=== PATIENT | female | born 1955 | race Hispanic/Latino ===

== ENCOUNTER 2018-03-11 17:14 | Emergency (ER) | payer OTHER, SELFPAY | END 2018-03-11 18:25 | disposition home or self-care (01) | LOC: SCSER 17:14 | DX: H60.92 Unspecified otitis externa, left ear (principal); E11.9 Type 2 diabetes mellitus without complications; E78.5 Hyperlipidemia, unspecified; I10 Essential (primary) hypertension; Z87.891 Personal history of nicotine dependence | CPT/HCPCS: 99282 ==

== ENCOUNTER 2018-04-10 08:35 | Observation (INO) | payer MEDICARE, SELFPAY ==
[2018-04-10 09:09] LABS: #Basophils 0.1 thou/uL (0.0-0.2); #Eosinphils 0.2 thou/uL (0.0-0.7); #Lymphocytes 1.7 thou/uL (1.20-3.40); #Monocytes 0.3 thou/uL (0.11-0.59); #Neutrophils 3.8 thou/uL (1.40-6.50); %Basophils 1.4 % (0.0-1.0); %Eosinophils 3.2 % (0.0-10.0); %Lymphocytes 27.6 % (21.0-51.0); %Monocytes 5.4 % (0.0-10.0); %Neutrophils 62.6 % (42.0-75.0); Mean Corpuscular HGB CONC 32.8 g/dL (32.0-36.0); Mean Corpuscular Hemoglobin 28.8 pg (27.0-31.0); Mean Corpuscular Volume 87.8 fL (78.0-98.0); Mean Platelet Volume 7.7 fL (7.4-10.4); Platelet Count 258 thou/uL (130-400); Red Blood Cell (RBC) Count 4.52 mill/uL (4.20-5.40)
[2018-04-10] MEDS ORDERED: hydrALAZINE 20 MG/ML VIAL ONE (09:10)
[2018-04-10 09:30] LABS: Bilirubin Negative (Negative); Blood, Urine Trace (Negative); Clarity Clear (Clear); Glucose, Urine (Dipstick) Negative (Negative); Leukocyte Small (Negative); Nitrite Negative (Negative); Protein, Urine (Dipstick) Negative (Neg-Trace); Urobilinogen 0.2 mg/dL (0.2-1.0); pH, Urine 7.5 (5.0-9.0)
[2018-04-10 09:39] LABS: ALT (SGPT) 10 U/L (8-55); AST (SGOT) 15 U/L (5-34); Albumin 4.1 g/dL (3.4-4.8); Alkaline Phosphatase 62 U/L (40-150); Anion Gap 13 mmol/L (10-20); BUN (Urea Nitrogen) 16 mg/dL (9.8-20.1); Bilirubin, Total 0.6 mg/dL (0.2-1.2); Calc. Creatinine Clearance 0 mL/min (70-130); Calcium 9.4 mg/dL (7.8-10.44); Carbon Dioxide 27 mmol/L (23-31); Chloride 97 mmol/L (98-107); Estimated GFR-MDRD Greater than 90; Globulin 3.2 g/dL (2.4-3.5); Glucose 160 mg/dL (80-115); Potassium 3.3 mmol/L (3.5-5.1); Protein, Total 7.3 g/dL (6.0-8.3); Sodium 134 mmol/L (136-145)
[2018-04-10 09:40] LABS: Bacteria/HPF Rare-Few HPF (None Seen); Squamous Epithelial 0-3 HPF (0-3)
[2018-04-10 09:40] LABS: CKMB 1.5 ng/mL (0-6.6); Troponin I Less than 0.010 ng/mL (< 0.028)
--- NOTE | 2018-04-10 10:06 | RAD ---
PORTABLE CHEST: History: Chest pain FINDINGS: The lung clark are clear. Heart and mediastinum appear normal. Vasculature is normal. IMPRESSION: No acute abnormality. POS: [facility]
--- NOTE | 2018-04-10 10:10 | CT ---
NONCONTRAST CT HEAD: Date: 04-10-18 History: Headache, high blood pressure. Comparison: None available. FINDINGS: There is no evidence of a hemorrhage, acute infarction, mass effect, or midline shift. Ventricular sy stem is normal in size, shape, and position. Mucosal thickening is present in the left sphenoid sinus . Mastoid air cells are clear. Calvarial structures are intact. IMPRESSION: 1. No acute intracranial abnormalities demonstrated. 2. Sinus disease involving the left sphenoid sinus. POS: [facility]
[2018-04-10 12:50] LABS: Troponin I Less than 0.010 ng/mL (< 0.028)
[2018-04-10] MEDS ORDERED: Nitroglycerin 2% Ointment 1 INCH/1 GM Packet ONE (12:56)
[2018-04-10 16:45] VITALS: BMI 24.4
[2018-04-10] MEDS ORDERED: Nitroglycerin 0.4 MG TAB (25 Tab Bottle) PO PRN (17:08)
[2018-04-10] MEDS ORDERED: Dextrose 5% in Water 1,000 ML IV PRN (17:10)
[2018-04-10] MEDS ORDERED: Dextrose 50% Abboject 50 ML SYRINGE SLOW IVP PRN (17:10)
[2018-04-10] MEDS ORDERED: HumaLOG 300 UNITS/3 ML VIAL SC PRN (17:10)
[2018-04-10] MEDS ORDERED: Acetaminophen 325 MG TAB PO PRN (17:25)
[2018-04-10 17:27] LABS: Troponin I Less than 0.010 ng/mL (< 0.028)
[2018-04-10] MEDS: Potassium Chloride 20 MEQ TAB PO SCH (17:40)
[2018-04-10] MEDS ORDERED: Ondansetron ORAL SOLN. 4 MG/5 ML UDCUP PO PRN (18:10)
[2018-04-10] MEDS ORDERED: Ondansetron HCl/PF 4 MG/2 ML Vial IVP PRN (18:10)
[2018-04-10] MEDS ORDERED: Metoclopramide HCl 10 MG/2 ML VIAL IVP SCH (18:15)
[2018-04-10] MEDS: Lisinopril/Hydrochlorothiazide 20 mg/12.5 mg Tablet PO SCH (18:51)
--- NOTE | 2018-04-10 19:39 | PDOC.FPRHP ---
- History of Present Illness Chief Complaint: Chest Pain History of Present Illness: Patient presented to [facility] ED for chest pain starting this afternoon at rest. has not had this happen before. Described as 2/10 tightness with numb senstation running down extremities. Not related to exertion. Had a stress test 10 years ago which was normal. No N/V/D. No recent illness. No Fm Hx of heart disease. Former smoker, 1/2ppd for 7 years. Dm2, HLD, HTN. ED Course: Nitro paste ASA - Allergies/Adverse Reactions Allergies Allergy/AdvReac Type Severity Reaction Status Date / Time No Known Allergies Allergy Unverified 04/10/18 16:56 - Home Medications Medication Instructions Recorded Confirmed Type Cholesterol Med 04/10/18 History Dorzolamide HCl/Timolol Maleat 1 drop L EYE BID 04/10/18 04/10/18 History [Dorzolamide HCl/Timolol Maleate Ophth] Lisinopril/Hydrochlorothiazide 1 tablet PO BID 04/10/18 04/10/18 History [Lisinopril-Hctz 20-12.5 mg Tab] Prednisolone Acetate/Pf 1 drop L EYE DAILY 04/10/18 04/10/18 History [Prednisolone Acet 1% Eye Drop] metFORMIN HCl [Metformin HCl] 1,000 mg PO BID-WM 04/10/18 04/10/18 History - History PMHx: DM2, HLD, HTN, Glaucoma PSHx: uterine suspension FHx: non-contributory Social: 1/2 ppd smoker for 7 years, quit last year, no alcohol/drugs - Review of Systems General: denies: fever/chills, night sweats Eyes: denies: eye pain ENT: denies: nasal congestion, rhinorrhea Respiratory: denies: cough, congestion Cardiovascular: reports: chest pain. denies: palpitation, orthopnea Gastrointestinal: denies: nausea, vomiting, diarrhea Genitourinary: denies: dysuria Skin: denies: rashes, itching Musculoskeletal: denies: pain, arthritis/arthralgias Neurological: denies: numbness, weakness Psychological: reports: anxiety. denies: depression - Vital signs BP: 211/117 -> 130s/90s HR: 75 RR: 18 Tmax: 97.7 Pox: 98% on RA Wt: 57kg - Physical Exam Constitutional: NAD, awake, alert and oriented HEENT: normocephalic and atraumatic Neck: supple Chest: no-tender to palpation Heart: RRR, normal S1/S2 Lungs: CTAB, no respiratory distress Abdomen: soft, non-tender, bowel sounds present, no hernias Musculoskeletal: normal structure Neurological: no focal deficit, normal sensation Skin: no rash/lesions, capillary refill <2 seconds Psychiatric: normal mood and affect FMR H&P: Results - Labs Result Diagrams: 04/10/18 08:52 04/10/18 09:15 Lab results: WBC 6.0 thou/uL (4.8-10.8) 04/10/18 08:52 Hgb 13.0 g/dL (12.0-16.0) 04/10/18 08:52 Hct 39.7 % (36.0-47.0) 04/10/18 08:52 MCV 87.8 fL (78.0-98.0) 04/10/18 08:52 Plt Count 258 thou/uL (130-400) 04/10/18 08:52 Neutrophils % 62.6 % (42.0-75.0) 04/10/18 08:52 Sodium 134 mmol/L (136-145) L 04/10/18 09:15 Potassium 3.3 mmol/L (3.5-5.1) L 04/10/18 09:15 Chloride 97 mmol/L (98-107) L 04/10/18 09:15 Carbon Dioxide 27 mmol/L (23-31) 04/10/18 09:15 BUN 16 mg/dL (9.8-20.1) 04/10/18 09:15 Creatinine 0.64 mg/dL (0.6-1.1) 04/10/18 09:15 Glucose 160 mg/dL (80-115) H 04/10/18 09:15 Calcium 9.4 mg/dL (7.8-10.44) 04/10/18 09:15 Total Bilirubin 0.6 mg/dL (0.2-1.2) 04/10/18 09:15 AST 15 U/L (5-34) 04/10/18 09:15 ALT 10 U/L (8-55) 04/10/18 09:15 Alkaline Phosphatase 62 U/L (40-150) 04/10/18 09:15 CK-MB (CK-2) 1.5 ng/mL (0-6.6) 04/10/18 09:15 Serum Total Protein 7.3 g/dL (6.0-8.3) 04/10/18 09:15 Albumin 4.1 g/dL (3.4-4.8) 10 09:15 Urine Ketones Negative mg/dL (Negative) 04/10/18 08:45 Urine Blood Trace (Negative) H 04/10/18 08:45 Urine Nitrite Negative (Negative) 04/10/18 08:45 Ur Leukocyte Esterase Small (Negative) H 04/10/18 08:45 Urine RBC 4-6 HPF (0-3) 04/10/18 08:45 Urine WBC 4-6 HPF (0-3) H 04/10/18 08:45 Ur Squamous Epith Cells 0-3 HPF (0-3) 04/10/18 08:45 Urine Bacteria Rare-Few HPF (None Seen) 04/10/18 08:45 FMR H&P: A/P - Problem List (1) Chest pain Current Visit: Yes Status: Acute Code(s): R07.9 - CHEST PAIN, UNSPECIFIED (2) DM2 (diabetes mellitus, type 2) Current Visit: Yes Status: Acute (3) HLD (hyperlipidemia) Current Visit: Yes Status: Acute Code(s): E78.5 - HYPERLIPIDEMIA, UNSPECIFIED (4) HTN (hypertension) Current Visit: Yes Status: Acute Code(s): I10 - ESSENTIAL (PRIMARY) HYPERTENSION - Plan # chest pain likely 2/2 anxiety - trop neg x3 - EKG no q waves or ST changes - Nitro for chest pain PRN - normal stress 10 years ago, would like to have exercise stress test - has appt with cardiology on 05/01 # HTN - home meds - hydralazine PRN # HLD - home meds # DM2 - metformin - SSI Code: full PPx: scds Dispo: likely home tomorrow Attending Addendum - Attending Addendum Date/Time: 04/10/18 1698 I personally evaluated the patient and discussed the management with Dr. Rangel. I agree with the History, Examination, Assessment and Plan documented above with any addition or exceptions noted below. Patient with history of HTN who has been off Amlodipine for the last few months due to labile blood pressures here with chest discomfort associated with highly elevated BP. Patient has been noting elevated BP over the last few days, and today, when SBP >200, she had some mid chest tightness not associated with shortness of breath, diaphoresis, radiating pain. Seen in ER and developed nausea and headache after nitro paste applied and SBP decreased to 110s. She currently is pain free and feels well. Vitals improved and SBP around 140s. Troponins negative and EKG does not suggest ischemia. She has appointment with cardiology as outpatient at the end of this month and would prefer to defer stress testing until that time. She has been effectively ruled out for ACS. Will monitor BP overnight and increase anti-HTN therapy as needed and likely discharge home tomorrow morning with further workup as outpatient.
[2018-04-11 04:37] LABS: #Basophils 0.1 thou/uL (0.0-0.2); #Eosinphils 0.2 thou/uL (0.0-0.7); #Lymphocytes 2.2 thou/uL (1.20-3.40); #Monocytes 0.7 thou/uL (0.11-0.59); #Neutrophils 5.2 thou/uL (1.40-6.50); %Basophils 0.6 % (0.0-1.0); %Eosinophils 2.4 % (0.0-10.0); %Lymphocytes 26.5 % (21.0-51.0); %Neutrophils 62.6 % (42.0-75.0); Hemoglobin 12.4 g/dL (12.0-16.0); Mean Corpuscular HGB CONC 34.4 g/dL (32.0-36.0); Mean Corpuscular Hemoglobin 30.8 pg (27.0-31.0); Mean Corpuscular Volume 89.3 fL (78.0-98.0); Platelet Count 301 thou/uL (130-400); RBC Distribution Width 10.9 % (11.5-14.5); Red Blood Cell (RBC) Count 4.03 mill/uL (4.20-5.40); White Blood Cell (WBC) Count 8.3 thou/uL (4.8-10.8)
[2018-04-11 04:57] LABS: Anion Gap 10 mmol/L (10-20); BUN (Urea Nitrogen) 16 mg/dL (9.8-20.1); Calc. Creatinine Clearance 74 mL/min (70-130); Calcium 9.3 mg/dL (7.8-10.44); Carbon Dioxide 28 mmol/L (23-31); Cardiac Risk 3.7 (Less than 4.5); Chloride 94 mmol/L (98-107); Cholesterol 179 mg/dl (< 200 Desired); Estimated GFR-MDRD 87; Glucose 122 mg/dL (80-115); HDL Cholesterol 48 mg/dL (>60 Neg Risk); LDL Cholesterol, Calculated 101 mg/dL; Potassium 3.2 mmol/L (3.5-5.1); Sodium 129 mmol/L (136-145); Triglycerides 149 mg/dL (Less than 150)
--- NOTE | 2018-04-11 07:24 | PDOC.FM ---
- Subjective Subjective: This morning patient reports no CP, shortness of breath, or N/V/D. She states she is feeling somewhat anxious about being in the hospital. She has been able to ambulate without difficulty. She states she is ready to go home and will f/u with cardiology on 05/01. - Objective Vital Signs & Weight: Vital Signs (12 hours) Temp Pulse Resp BP Pulse Ox 04/11/18 04:34 62 18 129/75 98 04/11/18 00:45 63 18 108/65 98 04/10/18 20:10 98 F 69 18 147/82 H 99 Weight Weight 56.727 kg I&O: 04/10/18 04/11/18 04/12/18 06:59 06:59 06:59 Intake Total 240 Balance 240 Result Diagrams: 04/11/18 04:01 04/11/18 04:01 <Romeo Rangel - Last Filed: 04/11/18 07:22> - Objective Vital Signs & Weight: Vital Signs (12 hours) Temp Pulse Resp BP Pulse Ox 04/11/18 04:34 62 18 129/75 98 04/11/18 00:45 63 18 108/65 98 04/10/18 20:10 98 F 69 18 147/82 H 99 Weight Weight 56.727 kg I&O: 04/10/18 04/11/18 04/12/18 06:59 06:59 06:59 Intake Total 240 Balance 240 Result Diagrams: 04/11/18 04:01 04/11/18 04:01 <Maverick Hastings - Last Filed: 04/11/18 08:08> Phys Exam - Physical Examination Constitutional: NAD HEENT: PERRLA, moist MMs Neck: no nodes, full ROM Respiratory: no wheezing, clear to auscultation bilateral Cardiovascular: RRR, no significant murmur Gastrointestinal: soft, non-tender, no distention, positive bowel sounds Musculoskeletal: no edema, pulses present Neurological: non-focal, moves all 4 limbs Psychiatric: normal affect, A&O x 3 Skin: no rash, cap refill <2 seconds <Romeo Rangel - Last Filed: 04/11/18 07:22> Dx/Plan (1) Chest pain Code(s): R07.9 - CHEST PAIN, UNSPECIFIED Status: Acute (2) DM2 (diabetes mellitus, type 2) Status: Acute (3) HLD (hyperlipidemia) Code(s): E78.5 - HYPERLIPIDEMIA, UNSPECIFIED Status: Acute (4) HTN (hypertension) Code(s): I10 - ESSENTIAL (PRIMARY) HYPERTENSION Status: Acute - Plan Plan: # chest pain likely 2/2 anxiety - trop neg x3 - EKG no q waves or ST changes - Nitro for chest pain PRN - normal stress 10 years ago, would like to have exercise stress test rather than cardiolyte - has appt with cardiology on 05/01 # Hypokalemia - discussed dietary modifications # Hyponatremia - f/u outpatient # HTN - pressure high before taking home meds last night - home meds - hydralazine PRN # HLD - home meds # DM2 - metformin - SSI Code: full PPx: scds Dispo: d/c this AM <Romeo Rangel - Last Filed: 04/11/18 07:22> (1) Chest pain Code(s): R07.9 - CHEST PAIN, UNSPECIFIED Status: Acute (2) DM2 (diabetes mellitus, type 2) Status: Acute (3) HLD (hyperlipidemia) Code(s): E78.5 - HYPERLIPIDEMIA, UNSPECIFIED Status: Acute (4) HTN (hypertension) Code(s): I10 - ESSENTIAL (PRIMARY) HYPERTENSION Status: Acute <Maverick Hastings - Last Filed: 04/11/18 08:08> Attending Addendum - Attending Addendum Date/Time: 04/11/18 0807 I personally evaluated the patient and discussed the management with Dr. Rangel. I agree with the History, Examination, Assessment and Plan documented above with any addition or exceptions noted below. Patient here for ACS rule out that has effectively been ruled out. She has elevated HEART score placing her at risk for CAD, but she has appointment with quality checker in a few weeks and would prefer to delay further workup until that time. Her BP has been somewhat labile and if it spikes, will likely discharge home with low dose Norvasc to be taken on an as needed basis. Should be stable for discharge later this morning after ensuring continued BP control. <Maverick Hastings - Last Filed: 04/11/18 08:08>
[2018-04-11] MEDS: Lisinopril/Hydrochlorothiazide 20 mg/12.5 mg Tablet PO SCH (08:30)
[2018-04-11] MEDS: Potassium Chloride 20 MEQ TAB PO SCH (08:30)
[2018-04-11] MEDS: metFORMIN 500 MG TAB PO SCH ×2 (08:30→18:23)
[2018-04-11] MEDS ORDERED: DorzolamidE/Timolol 2%/0.5% Ophth Soln 10 ml Bottle L EYE SCH (09:00)
[2018-04-11] MEDS ORDERED: Aspirin 325 MG TAB PO SCH (09:00)
--- NOTE | 2018-04-11 09:36 | PDOC.EVN ---
Event Note - Event Note Event Note: Patient went in and out of accelerated junctional rhythm on tele last night. Discussed with On-call pastry supervisor, recommends stress test Will order this and f/u appropriately
--- NOTE | 2018-04-11 15:49 | NM ---
NUCLEAR MEDICINE CARDIAC MYOCARDIAL PERFUSION SPECT EJECTION FRACTION STUDY WALL MOTION CINE: 04/11/18 HISTORY: A 63-year-old hypertensive, diabetic female with dyslipidemia and history of smoking, presents with c hest pain. TECHNIQUE: Number of days: One. Rest study: Tc99m sestamibi (Cardiolite) dose: 10.9 mCi Exercise stress: treadmill. Stress study: Tc99m sestamibi (Cardiolite) dose: 33.0 mCi FINDINGS: CARDIAC (MYOCARDIAL PERFUSION) SPECT There are no reversible myocardial perfusion defects. EJECTION FRACTION STUDY EF = 77% WALL MOTION CINE Normal. IMPRESSION: No evidence of reversible ischemia. NADEEN Myrick POS: [facility]
[2018-04-11 16:06] VITALS: BP 140/80; TEMP 98.2
[2018-04-11] MEDS ORDERED: Atorvastatin Calcium 40 MG TAB PO SCH (21:00)
--- NOTE | 2018-04-12 03:37 | DIS-2 ---
DATE OF ADMISSION: 04/10/2018 DATE OF DISCHARGE: 04/11/2018 RESIDENT: Dr. Romeo Rangel. ADMITTING ATTENDING: Dr. Josie Hussein. DISCHARGE ATTENDING: Maverick Hastings MD CONSULTATIONS: None. PROCEDURE: Nuclear stress test read as negative. PRIMARY DIAGNOSIS: Chest pain, rule out. SECONDARY DIAGNOSES: Accelerated junctional rhythm, anxiety, diabetes type 2, hyperlipidemia, hypert ension. DISCHARGE MEDICATIONS: Aspirin 81 mg, atorvastatin, pravastatin which everyone is cheaper for the ok tient, lisinopril-hydrochlorothiazide, prednisolone, timolol eyedrops, metformin 1000 mg b.i.d. HISTORY OF PRESENT ILLNESS AND HOSPITAL COURSE: This is a 63-year-old female who presented to the [facility] ER for chest pain which started slightly before admission. The chest pain was de scribed as a pressure, which lasted about 20 minutes, nonexertional, 2/10 with running down the right extremity. Not related to exertion. Had a stress test normal. No recent illness, naus ea, vomiting or diarrhea. No family history of heart disease. Former smoker, half pack a day for 7 years. History of diabetes mellitus type 2, hyperlipidemia, and hypertension. Overnight, patient was found to have an accelerated junctional rhythm on telemetry. Discussed case w ith on-call belt line feeder who recommended stress testing. Stress test was read as normal. Cardiologi st is okay with the patient following up with primary belt line feeder on 05/01. Records will to be sent to [facility] for further review. Patient came in with a heart score of 5, so close followup would b e appropriate. New made stress test read as no evidence of reversible ischemia with an EF of 77%. DISPOSITION: Stable. DISCHARGE INSTRUCTIONS: 1. Location: Home. 2. Diet: Heart healthy. 3. Activity: As tolerated. 4. Follow up with primary care provider in 2 to 3 days, [facility] heart 05/01.
== END 2018-04-11 18:53 | disposition home or self-care (01) ==
LOC: SCSER 08:35 → 2SW 13:36
PROVIDERS: ADMIT Family Medicine; ATTEND Family Medicine
DX: R07.89 Other chest pain (principal); I49.2 Junctional premature depolarization; F41.9 Anxiety disorder, unspecified; E11.9 Type 2 diabetes mellitus without complications; E78.5 Hyperlipidemia, unspecified; I10 Essential (primary) hypertension; E87.6 Hypokalemia; E87.1 Hypo-osmolality and hyponatremia; Z87.891 Personal history of nicotine dependence; Z79.84 Long term (current) use of oral hypoglycemic drugs; Z79.899 Other long term (current) drug therapy
CPT/HCPCS: 70450; 71045; 78452; 80048; 80053; 80061; 82553; 82962 ×2; 84484 ×2; 85025 ×2; 93005 ×2; 93017; 96374; 96375; 99285; A9500; G0378; 36415; 36416; 81003; 81015; 93010; J0360; J2405

== ENCOUNTER 2018-05-04 05:47 | Emergency (ER) | payer MEDICARE ==
[2018-05-04 06:38] LABS: #Basophils 0.1 thou/uL (0.0-0.2); #Eosinphils 0.2 thou/uL (0.0-0.7); #Monocytes 0.6 thou/uL (0.11-0.59); %Basophils 1.1 % (0.0-1.0); %Eosinophils 2.8 % (0.0-10.0); %Lymphocytes 28.6 % (21.0-51.0); %Monocytes 8.9 % (0.0-10.0); %Neutrophils 58.5 % (42.0-75.0); Hemoglobin 12.3 g/dL (12.0-16.0); Mean Corpuscular Hemoglobin 29.6 pg (27.0-31.0); Mean Corpuscular Volume 84.4 fL (78.0-98.0); Mean Platelet Volume 7.9 fL (7.4-10.4); Platelet Count 233 thou/uL (130-400); RBC Distribution Width 10.4 % (11.5-14.5); Red Blood Cell (RBC) Count 4.17 mill/uL (4.20-5.40); White Blood Cell (WBC) Count 6.9 thou/uL (4.8-10.8)
[2018-05-04 06:52] LABS: ALT (SGPT) 10 U/L (8-55); AST (SGOT) 16 U/L (5-34); Albumin 4.2 g/dL (3.4-4.8); Alkaline Phosphatase 65 U/L (40-150); Anion Gap 14 mmol/L (10-20); BUN (Urea Nitrogen) 11 mg/dL (9.8-20.1); Bilirubin, Total 0.7 mg/dL (0.2-1.2); CK (CPK) 48 U/L (29-168); Calc. Creatinine Clearance 0 mL/min (70-130); Calcium 9.1 mg/dL (7.8-10.44); Carbon Dioxide 26 mmol/L (23-31); Chloride 98 mmol/L (98-107); Estimated GFR-MDRD 88; Globulin 3.2 g/dL (2.4-3.5); Glucose 180 mg/dL (80-115); Protein, Total 7.4 g/dL (6.0-8.3); Sodium 135 mmol/L (136-145)
[2018-05-04 06:53] LABS: Bilirubin Negative (Negative); Blood, Urine Trace (Negative); Clarity Clear (Clear); Glucose, Urine (Dipstick) 100 mg/dL (Negative); Leukocyte Negative (Negative); Nitrite Negative (Negative); Protein, Urine (Dipstick) Negative (Neg-Trace); Specific Gravity, Urine 1.015 (1.005-1.030); Urobilinogen 0.2 mg/dL (0.2-1.0); pH, Urine 7.5 (5.0-9.0)
[2018-05-04 06:54] LABS: CKMB 1.6 ng/mL (0-6.6); Troponin I Less than 0.010 ng/mL (< 0.028)
[2018-05-04 06:58] LABS: Bacteria/HPF None Seen HPF (None Seen); Hyaline Casts/LPF 0-3 HYALINE CAST LPF (0-3 Hyaline); RBC/HPF 0-3 HPF (0-3); Squamous Epithelial 0-3 HPF (0-3); WBC/HPF 0-3 HPF (0-3)
[2018-05-04 06:59] LABS: Potassium 2.9 mmol/L (3.5-5.1)
[2018-05-04] MEDS ORDERED: Potassium Chloride 20 MEQ TAB ONE (07:06)
--- NOTE | 2018-05-04 07:55 | RAD ---
PORTABLE UPRIGHT FRONTAL CHEST RADIOGRAPH: 05/04/2018 HISTORY: Hypertension. COMPARISON: 04/10/2018 FINDINGS: Heart and mediastinal contours are stable. There is atherosclerotic calcification of the aortic arch . There is no pneumothorax, pleural fluid, focal consolidation, or alveolar edema. IMPRESSION: No acute findings. POS: [facility]
--- NOTE | 2018-05-14 17:07 | EKG ---
Test Reason : HTN Blood Pressure : / mmHG Vent. Rate : 066 BPM Atrial Rate : 066 BPM P-R Int : 152 ms QRS Dur : 082 ms QT Int : 416 ms P-R-T Axes : 000 -11 070 degrees QTc Int : 436 ms Normal sinus rhythm Nonspecific ST abnormality No STEMI Nonspecific T wave abnormality Abnormal ECG Confirmed by CONI Sullivan, CHERI ([id number]), editor at large WINNIE MAHAN ([id number]) on 05/14/2018 5:07:03 PM Referred By: Confirmed By:CHERI NEWBERRY M.D.
== END 2018-05-04 07:12 | disposition home or self-care (01) ==
LOC: SCSER 05:47
DX: I10 Essential (primary) hypertension (principal); E78.5 Hyperlipidemia, unspecified; E10.39 Type 1 diabetes mellitus with other diabetic ophthalmic complication; H40.9 Unspecified glaucoma; H42 Glaucoma in diseases classified elsewhere; Z87.891 Personal history of nicotine dependence; Z79.84 Long term (current) use of oral hypoglycemic drugs; Z79.899 Other long term (current) drug therapy
CPT/HCPCS: 71045; 80053; 81003; 81015; 82550; 82553; 84484; 85025; 93005

== ENCOUNTER 2020-11-09 10:33 | Outpatient (CLI) | payer MEDICARE | END 2020-11-09 10:34 | disposition home or self-care (01) | LOC: DTY/OP 10:33 | PROVIDERS: ATTEND Family Medicine | DX: E11.9 Type 2 diabetes mellitus without complications (principal) | CPT/HCPCS: 97802 ==